=== PATIENT | male | born 1970 | race Caucasian/White ===

== ENCOUNTER → 2018-11-27 | Day surgery (SDC) | payer OTHER ==
[~2018-11-27] MED LIST: IV RINGERS,LACTATED 1000ML 1,000 ML IV SCH; LEVO88TA4 PO; LIDOCAINE 1% PF 2 ML VIAL. ID PRN; MIDAZOLAM HCL/PF 2 MG/2 ML VIAL. IV PRN; PROP40TA PO; PROPOFOL 20 ML IV ONE; RANI300T3 PO; RISP3TAB23 PO; SERT50TA PO; fentaNYL PF VIAL 100 MCG/2 ML VIAL IV PRN
[2018-11-27 08:14] VITALS: BP 138/89
--- NOTE | 2018-11-27 09:52 | CONS ---
DATE OF CONSULTATION: 11/27/2018 REFERRING PHYSICIAN: JANAK Campos REASON FOR CONSULTATION: Hep C, varices screening. HISTORY OF PRESENT ILLNESS: A 48-year-old male with past medical history significant for hep C, mood disorder as well as hypothyroidism and gastroesophageal reflux disease is seen for upper endoscopy, has a history of hepatitis C, on treatment for hep C with Zepatier and treatment in progress. Denies any family history of liver disease. 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 No blood transfusions are noted. He denies any extrahepatic manifestations of liver disease at this time. He is otherwise without additional complaints. PAST MEDICAL HISTORY: Hypothyroidism, gastroesophageal reflux disease, hepatitis C, status post knee cartilage surgery. ALLERGIES: PENICILLIN. MEDICATIONS: Include levothyroxine, propranolol, ranitidine, risperidone, Zoloft. FAMILY AND SOCIAL HISTORY: Former meth user, drinker and smoker. REVIEW OF SYSTEMS: As per records. PHYSICAL EXAMINATION: GENERAL: Reveals a well-nourished, well-developed male. VITAL SIGNS: Temperature is 97, pulse is 90, respirations 20. HEENT: Normocephalic and atraumatic. Pupils and extraocular muscles are not tested. Sclerae anicteric. NECK: Supple. LUNGS: Clear. CARDIOVASCULAR: Reveals an S1, S2 without S3, S4 or appreciable murmur. ABDOMEN: Soft abdomen, normal bowel sounds without appreciable hepatosplenomegaly. EXTREMITIES: Reveals no cyanosis, clubbing or edema. IMPRESSION AND PLAN: Hepatitis C, presently on treatment with Zepatier. Upper endoscopy is recommended to screen for varices. Risks and benefits have been discussed with the patient including the risk of hemorrhage and perforation and is willing to proceed at this time. JOSIAH GARCIA MD DR: TANIA/reuben JOB#: [id number] / [id number]
== END | disposition home or self-care (01) ==
LOC: ENDOS 06:19 → EEVIPCON 06:19
PROVIDERS: ATTEND Internal Medicine Gastroenterology
DX: K29.70 Gastritis, unspecified, without bleeding (principal); E03.9 Hypothyroidism, unspecified; K21.9 Gastro-esophageal reflux disease without esophagitis; Z86.19 Personal history of other infectious and parasitic diseases; Z98.890 Other specified postprocedural states; Z88.0 Allergy status to penicillin; Z79.899 Other long term (current) drug therapy; F17.200 Nicotine dependence, unspecified, uncomplicated; Z72.89 Other problems related to lifestyle
CPT/HCPCS: 43235; J2704